=== PATIENT | female | born 1980 | race Caucasian/White ===

== ENCOUNTER 2021-05-30 15:11 | Inpatient (IN) | payer MEDICAID ==
[~2021-05-30] VITALS: Ht 165.1 cm; Wt 60.3 kg
[2021-05-30] MEDS ORDERED: ACETAMINOPHEN 325MG TABLET PO STA (16:59)
[2021-05-30] MEDS ORDERED: SODIUM CHLORIDE 0.9% 1000ML BAG (SEPSIS BOLUS) IV ONE (17:00)
[2021-05-30] MEDS ORDERED: CEFTRIAXONE 1 G PREMIX 50 ML IV ONE (17:00)
[2021-05-30 17:26] LABS: BASOPHILS % 0.2 % (0.0-2.0); HEMATOCRIT. 34.8 % (36.0-48.0); HEMOGLOBIN. 11.9 g/dL (12.0-16.0); LYMPHOCYTES % 30.6 % (20.0-50.0); MEAN CORPUSCULAR HEMOGLOBIN 29.1 pg (28.0-32.0); MEAN PLATELET VOLUME 9.8 fl (7.4-10.4); MONOCYTES % 8.8 % (2.0-8.0); NEUTROPHILS % 60.4 % (40.0-76.0); PLATELET 114 x1000/uL (130-400); RED BLOOD CELL COUNT 4.09 mill/uL (4.2-5.4); RED CELL DISTRIBUTION WIDTH 15.7 % (11.6-14.6)
[2021-05-30 17:33] LABS: CHLORIDE 97 mEq/L (98-107)
[2021-05-30 17:36] LABS: PROTHROMBIN TIME 10.9 sec (9.6-11.0)
[2021-05-30 17:37] LABS: ETHANOL BLOOD < 10 mg/dL
[2021-05-30] MEDS ORDERED: POTASSIUM CHLORIDE 20MEQ TABLET SR PO NR (18:15)
[2021-05-30 19:22] LABS: HCG SCREEN NEGATIVE
[2021-05-30 21:15] LABS: CLARITY URINE CLEAR (CLEAR); COLOR URINE YELLOW (YELLOW); KETONES URINE TRACE (NEGATIVE); LEUKOCYTE ESTERASE URINE NEGATIVE (NEGATIVE); NITRITE URINE POSITIVE (NEGATIVE); OCCULT BLOOD URINE NEGATIVE (NEGATIVE); PROTEIN URINE 1+ (NEGATIVE); SPECIFIC GRAVITY URINE 1.018 (1.005-1.030); UROBILINOGEN URINE 0.2 E.U./dL (0.2-1.0)
[2021-05-30 21:31] LABS: *AMPHETAMINES SCREEN URINE NEGATIVE (NEGATIVE); *BARBITURATES SCREEN URINE NEGATIVE (NEGATIVE); *BENZODIAZEPINES SCREEN URINE NEGATIVE (NEGATIVE); *COCAINE SCREEN URINE NEGATIVE (NEGATIVE); METHADONE URINE SCREEN NEGATIVE (NEGATIVE); OPIATES URINE SCREEN NEGATIVE (NEGATIVE); PHENCYCLIDINE URINE SCREEN NEGATIVE (NEGATIVE)
[2021-05-30 21:32] LABS: CANNABINOID URINE SCREEN NEGATIVE (NEGATIVE)
[2021-05-30] MEDS ORDERED: IBUPROFEN 600MG TABLET PO NR (21:45)
[2021-05-30] MEDS ORDERED: DOXYCYCLINE HYCLATE 100MG CAPSULE PO NR (21:45)
[2021-05-30] MEDS ORDERED: AMOX-424 MT (22:16)
[2021-05-30] MEDS ORDERED: AZIT250T12 MT (22:17)
[2021-05-30] MEDS ORDERED: IOHEXOL-300 100 ML BOTTLE ONE (23:27)
[2021-05-31 17:00] VITALS: BP 152/53
[2021-05-31 17:27] VITALS: BP 152/53
[2021-05-31] MEDS ORDERED: CEFTRIAXONE 1 G PREMIX 50 ML IV SCH (18:00)
[2021-05-31] MEDS ORDERED: ALBUTEROL 6.7GM HFA INHALER ORI PRN (18:00)
[2021-05-31] MEDS ORDERED: AZITHROMYCIN 500MG/250ML 250 ML IV SCH (18:00)
[2021-05-31] MEDS: ACETAMINOPHEN 325MG TABLET PO PRN (18:28)
[2021-05-31] MEDS ORDERED: DEXAMETHASONE 4MG/ML 1ML VIAL IV SCH (18:30)
[2021-05-31] MEDS: DEXAMETHASONE 4MG/ML 1ML VIAL IV SCH (18:43)
[2021-05-31 19:10] VITALS: BP 102/59
[2021-05-31] MEDS: ALBUTEROL 6.7GM HFA INHALER ORI SCH (20:00)
[2021-05-31] MEDS: CEFTRIAXONE 1,000 MG in DEXTROSE 5% WATER 50 ML IV SCH (20:35)
[2021-05-31] MEDS: AZITHROMYCIN 500MG in DEXTROSE 5% WATER 250ML IV SCH (21:19)
[2021-06-01] VITALS: BP 110/58
[2021-06-01 04:00] VITALS: BP 97/62
[2021-06-01] MEDS: ALBUTEROL 6.7GM HFA INHALER ORI SCH ×6 (04:00→20:55)
[2021-06-01 08:00] VITALS: BP 92/58
[2021-06-01] MEDS ORDERED: AMLODIPINE 10MG TABLET PO SCH (09:00)
[2021-06-01 12:00] VITALS: BP 107/55
[2021-06-01] MEDS: ACETAMINOPHEN 325MG TABLET PO PRN (12:14)
[2021-06-01 16:00] VITALS: BP 94/48
[2021-06-01] MEDS: ENOXAPARIN 40MG/0.4ML SYR SUBCUT SCH (17:39)
[2021-06-01] MEDS: DEXAMETHASONE 4MG/ML 1ML VIAL IV SCH (17:40)
[2021-06-01 19:55] VITALS: BP 103/54
[2021-06-01] MEDS: CEFTRIAXONE 1,000 MG in DEXTROSE 5% WATER 50 ML IV SCH (20:52)
[2021-06-01] MEDS: AZITHROMYCIN 500MG in DEXTROSE 5% WATER 250ML IV SCH (20:52)
[2021-06-02] VITALS: BP 94/54
[2021-06-02] MEDS: ALBUTEROL 6.7GM HFA INHALER ORI SCH ×5 (01:15→20:16)
[2021-06-02 04:00] VITALS: BP 96/57
[2021-06-02 06:57] LABS: HEMATOCRIT. 33.8 % (36.0-48.0); HEMOGLOBIN. 11.4 g/dL (12.0-16.0); LYMPHOCYTES % 8.9 % (20.0-50.0); MEAN CORPUSCULAR HEMOGLOBIN 28.9 pg (28.0-32.0); MEAN CORPUSCULAR VOLUME 85.9 fL (81.0-99.0); MEAN PLATELET VOLUME 10.5 fl (7.4-10.4); MONOCYTES % 4.7 % (2.0-8.0); NEUTROPHILS % 86.4 % (40.0-76.0); PLATELET 162 x1000/uL (130-400); RED BLOOD CELL COUNT 3.94 mill/uL (4.2-5.4); RED CELL DISTRIBUTION WIDTH 15.9 % (11.6-14.6)
[2021-06-02 07:10] LABS: CHLORIDE 106 mEq/L (98-107)
[2021-06-02 08:00] VITALS: BP 101/62
[2021-06-02 11:54] VITALS: BP 94/57
[2021-06-02] MEDS ORDERED: POTASSIUM CHLORIDE 20MEQ/PACKET PO NR (15:00)
[2021-06-02 16:00] VITALS: BP 92/64
[2021-06-02 16:08] LABS: BG BASE EXCESS 0.3 mmol/L (-2.0-2.0); BG CARBOXYHEMOGLOBIN 0.3 % (0.5-1.5); BG DEOXYHEMOGLOBIN 4.8 % (0.0-5.0); BG FRACTION INSPIRED OXYGEN 21; BG HCO3 ACT 21.5 mmol/L (22.0-26.0); BG METHEMOGLOBIN 0.4 % (0.0-1.5); BG OXYGEN SATURATION 95.2 % (92.0-98.5); BG OXYHEMOGLOBIN 94.5 % (94.0-97.0); BG PCO2 25.2 mmHg (35.0-45.0); BG PH 7.548 (7.350-7.450); BG PO2 70.9 mmHg (75.0-100.0); BG SAMPLE SITE LEFT RADIAL; BG TOTAL HEMOGLOBIN 11.9 g/dL (12.0-18.0); BG VENT MODE ROOM AIR
[2021-06-02] MEDS: DEXAMETHASONE 4MG/ML 1ML VIAL IV SCH (17:10)
[2021-06-02] MEDS: ENOXAPARIN 40MG/0.4ML SYR SUBCUT SCH (17:11)
[2021-06-02] MEDS: ACETAMINOPHEN 325MG TABLET PO PRN (17:11)
[2021-06-02 20:00] VITALS: BP 94/59
[2021-06-02] MEDS: CEFTRIAXONE 1,000 MG in DEXTROSE 5% WATER 50 ML IV SCH (20:15)
[2021-06-02] MEDS: AZITHROMYCIN 500MG in DEXTROSE 5% WATER 250ML IV SCH (20:15)
[2021-06-03 00:10] VITALS: BP 97/57
[2021-06-03] MEDS: ALBUTEROL 6.7GM HFA INHALER ORI SCH ×6 (01:08→20:24)
[2021-06-03 04:03] VITALS: BP 93/61
[2021-06-03 08:00] VITALS: BP_SYST 101; BP_SYST 112; BP_DIAS 39; BP_DIAS 70
[2021-06-03 08:09] LABS: BASOPHILS % 0.1 % (0.0-2.0); HEMATOCRIT. 37.5 % (36.0-48.0); HEMOGLOBIN. 12.2 g/dL (12.0-16.0); LYMPHOCYTES % 10.7 % (20.0-50.0); MEAN CORPUSCULAR HEMOGLOBIN 28.4 pg (28.0-32.0); MEAN CORPUSCULAR VOLUME 87.7 fL (81.0-99.0); MEAN PLATELET VOLUME 10.5 fl (7.4-10.4); MONOCYTES % 3.9 % (2.0-8.0); NEUTROPHILS % 85.3 % (40.0-76.0); PLATELET 211 x1000/uL (130-400); RED BLOOD CELL COUNT 4.27 mill/uL (4.2-5.4); RED CELL DISTRIBUTION WIDTH 16.1 % (11.6-14.6)
[2021-06-03 08:14] LABS: CHLORIDE 105 mEq/L (98-107)
[2021-06-03] MEDS: ACETAMINOPHEN 325MG TABLET PO PRN (08:31)
[2021-06-03 12:00] VITALS: BP 92/53
[2021-06-03 16:00] VITALS: BP 109/67
[2021-06-03] MEDS: DEXAMETHASONE 4MG/ML 1ML VIAL IV SCH (17:30)
[2021-06-03] MEDS: ENOXAPARIN 40MG/0.4ML SYR SUBCUT SCH (17:31)
[2021-06-03] MEDS: AZITHROMYCIN 500MG in DEXTROSE 5% WATER 250ML IV SCH (20:23)
[2021-06-03] MEDS: CEFTRIAXONE 1,000 MG in DEXTROSE 5% WATER 50 ML IV SCH (20:23)
[2021-06-03 23:24] VITALS: BP 90/55
[2021-06-04] MEDS: ALBUTEROL 6.7GM HFA INHALER ORI SCH ×6 (00:38→21:24)
[2021-06-04 04:00] VITALS: BP 103/61
[2021-06-04 05:14] LABS: BASOPHILS % 0.1 % (0.0-2.0); HEMATOCRIT. 37.8 % (36.0-48.0); HEMOGLOBIN. 12.6 g/dL (12.0-16.0); LYMPHOCYTES % 14.2 % (20.0-50.0); MEAN CORPUSCULAR HEMOGLOBIN 28.9 pg (28.0-32.0); MEAN PLATELET VOLUME 10.3 fl (7.4-10.4); MONOCYTES % 3.5 % (2.0-8.0); NEUTROPHILS % 82.2 % (40.0-76.0); PLATELET 205 x1000/uL (130-400); RED BLOOD CELL COUNT 4.34 mill/uL (4.2-5.4)
[2021-06-04 05:53] LABS: CHLORIDE 104 mEq/L (98-107)
[2021-06-04 08:00] VITALS: BP 92/66
[2021-06-04 12:00] VITALS: BP 91/57
[2021-06-04 16:00] VITALS: BP 94/65
[2021-06-04] MEDS: ENOXAPARIN 40MG/0.4ML SYR SUBCUT SCH (17:40)
[2021-06-04] MEDS: DEXAMETHASONE 4MG/ML 1ML VIAL IV SCH (17:40)
[2021-06-04 20:00] VITALS: BP 98/66
[2021-06-04] MEDS: CEFTRIAXONE 1,000 MG in DEXTROSE 5% WATER 50 ML IV SCH (21:23)
[2021-06-04] MEDS: AZITHROMYCIN 500MG in DEXTROSE 5% WATER 250ML IV SCH (21:23)
[2021-06-05] VITALS (7 sets, daily range): BP systolic 91–126; BP diastolic 52–78
[2021-06-05] MEDS: ALBUTEROL 6.7GM HFA INHALER ORI SCH ×6 (00:32→22:02)
[2021-06-05] MEDS: DEXAMETHASONE 4MG/ML 1ML VIAL IV SCH (17:36)
[2021-06-05] MEDS: ENOXAPARIN 40MG/0.4ML SYR SUBCUT SCH (17:37)
[2021-06-06 04:00] VITALS: BP 113/65
[2021-06-06] MEDS: ALBUTEROL 6.7GM HFA INHALER ORI SCH ×6 (04:00→21:23)
[2021-06-06 08:00] VITALS: BP 111/80
[2021-06-06 12:00] VITALS: BP 117/68
[2021-06-06] MEDS: SERTRALINE HCL 25MG TABLET PO SCH (12:02)
[2021-06-06 16:00] VITALS: BP 110/74
[2021-06-06] MEDS: ENOXAPARIN 40MG/0.4ML SYR SUBCUT SCH (17:11)
[2021-06-06] MEDS: DEXAMETHASONE 4MG/ML 1ML VIAL IV SCH (17:12)
[2021-06-06] MEDS ORDERED: SERT25TA74 PO (18:27)
[2021-06-06 20:00] VITALS: BP 96/67
[2021-06-07] VITALS: BP 105/57
[2021-06-07 04:00] VITALS: BP 112/61
[2021-06-07] MEDS: ALBUTEROL 6.7GM HFA INHALER ORI SCH ×4 (04:00→11:44)
[2021-06-07 08:00] VITALS: BP 99/65
[2021-06-07] MEDS: SERTRALINE HCL 25MG TABLET PO SCH (08:37)
[2021-06-07] MEDS: ACETAMINOPHEN 325MG TABLET PO PRN (10:45)
[2021-06-07 12:00] VITALS: BP 103/72
[2021-06-07 12:43] VITALS: BP 103/72
== END 2021-06-07 14:00 | disposition home or self-care (01) | DRG 720 ==
LOC: EDBD 15:11 → ER 15:11 → EDBEDREQTM 05-31 13:00 → 7WST 05-31 14:47 → EDBEDREQTM 05-31 14:52 → EDBEDREQ 05-31 14:52 → ENRESERV 05-31 15:24
PROVIDERS: ADMIT Internal Medicine; ATTEND Internal Medicine
DX: A41.89 Other specified sepsis (principal); U07.1 COVID-19; G93.41 Metabolic encephalopathy; K85.90 Acute pancreatitis without necrosis or infection, unspecified; E44.0 Moderate protein-calorie malnutrition; E87.8 Other disorders of electrolyte and fluid balance, not elsewhere classified; J84.9 Interstitial pulmonary disease, unspecified; D72.819 Decreased white blood cell count, unspecified; E87.1 Hypo-osmolality and hyponatremia; E87.6 Hypokalemia; J44.9 Chronic obstructive pulmonary disease, unspecified; N39.0 Urinary tract infection, site not specified; F41.9 Anxiety disorder, unspecified; F33.1 Major depressive disorder, recurrent, moderate; R74.8 Abnormal levels of other serum enzymes; Z79.2 Long term (current) use of antibiotics; Z79.899 Other long term (current) drug therapy; Z68.22 Body mass index [BMI] 22.0-22.9, adult
CPT/HCPCS: 36415; 36600; 71045; 71260; 80048; 80053; 80305; 80320; 81003; 82140; 82375; 82805; 83605; 84145; 84703; 85025; 87426; 93005; 99285; J0456; J0696; J1100; J1650; J7030; J7040; J7060; Q9967; G0480

== ENCOUNTER 2021-08-10 08:15 | Emergency (ER) | payer SELFPAY ==
[~2021-08-10] VITALS: Ht 167.6 cm; Wt 61.0 kg
[~2021-08-10 08:15] MED LIST: AMOX-424 MT; AZIT250T12 MT; SERT25TA74 PO
[2021-08-10 11:59] LABS: CLARITY URINE CLEAR (CLEAR); COLOR URINE YELLOW (YELLOW); KETONES URINE NEGATIVE (NEGATIVE); LEUKOCYTE ESTERASE URINE 3+ (NEGATIVE); NITRITE URINE POSITIVE (NEGATIVE); OCCULT BLOOD URINE NEGATIVE (NEGATIVE); PH URINE 5.5 (4.5-8.0); PROTEIN URINE NEGATIVE (NEGATIVE); SPECIFIC GRAVITY URINE 1.007 (1.005-1.030); UROBILINOGEN URINE 0.2 E.U./dL (0.2-1.0)
[2021-08-10] MEDS ORDERED: TOPUD MT (16:40)
[2021-08-10] MEDS ORDERED: NITR100C PO (16:40)
[2021-08-10] MEDS ORDERED: METOCLOPRAMIDE HCL 10MG TABLET PO ONE (16:45)
[2021-08-10] MEDS ORDERED: IBUPROFEN 400MG TABLET PO ONE (16:45)
[2021-08-10 17:33] VITALS: BP 107/68
== END 2021-08-10 17:48 | disposition home or self-care (01) ==
LOC: ER 08:15
DX: S22.41XA Multiple fractures of ribs, right side, initial encounter for closed fracture (principal); N39.0 Urinary tract infection, site not specified; Z20.822 Contact with and (suspected) exposure to COVID-19; X58.XXXA Exposure to other specified factors, initial encounter; Y93.9 Activity, unspecified; Y92.9 Unspecified place or not applicable
CPT/HCPCS: 71045; 81003; 93005; 99285; J8597